=== PATIENT | female | born 1995 | race Caucasian/White ===

== ENCOUNTER 2022-01-13 11:56 | Emergency (ER) | payer OTHER ==
[~2022-01-13] VITALS: Ht 167.6 cm; Wt 86.5 kg
[2022-01-13] MEDS ORDERED: BENZ200C70 PO (12:17)
[2022-01-13] MEDS ORDERED: PROA1AER2 INH (12:17)
[2022-01-13] MEDS ORDERED: OXYM15SP2 (12:17)
[2022-01-13] MEDS ORDERED: ACETAMINOPHEN 325 MG TAB PO ONE (14:25)
[2022-01-13 15:30] VITALS: BP 121/72
[2022-01-13 15:34] LABS: MONO REFLEX EBV COMP NEGATIVE (NEGATIVE)
[2022-01-16 16:08] LABS: EBV AB TO NUCLEAR ANTIGEN 86.9 U/mL (0.0-17.9); EBV VIRAL CAPSID AG IgM 47.4 U/mL (0.0-35.9)
== END 2022-01-13 16:03 | disposition home or self-care (01) ==
LOC: M ED 11:56
DX: J04.0 Acute laryngitis (principal); R07.89 Other chest pain; R51.9 Headache, unspecified; Z88.5 Allergy status to narcotic agent; Z79.51 Long term (current) use of inhaled steroids; Z79.899 Other long term (current) drug therapy